=== PATIENT | female | born 1990 | race Caucasian/White ===

== ENCOUNTER 2017-09-14 23:56 | Emergency (ER) | payer SELFPAY ==
[~2017-09-14] VITALS: Ht 172.7 cm; Wt 75.9 kg
[2017-09-15 01:48] VITALS: BP 153/100
== END 2017-09-15 01:48 | disposition home or self-care (01) ==
LOC: ED 23:56
DX: T78.1XXA Other adverse food reactions, not elsewhere classified, initial encounter (principal); X58.XXXA Exposure to other specified factors, initial encounter
CPT/HCPCS: J1885; J2060; J2405